=== PATIENT | female | born 1970 | race Two or more races ===

== ENCOUNTER 2020-04-17 10:34 | Emergency (ER) | payer OTHER ==
[2020-04-17 10:54] VITALS: BP 135/89; PULSE 96; TEMP 99; BMI 27.3
[2020-04-17] MEDS ORDERED: ACETAMINOPHEN 325 MG TABLET (FP) PO ONE (12:00)
[2020-04-17] MEDS ORDERED: ACETAMINOPHEN 325 MG TABLET (FP) ONE (12:06)
== END 2020-04-17 13:25 | disposition home or self-care (01) ==
LOC: JER 10:34
DX: U07.1 COVID-19 (principal)
CPT/HCPCS: 71046-TC-FY; 99284-25; C9803; U0003

== ENCOUNTER 2021-07-28 23:18 | Emergency (ER) | payer OTHER ==
[2021-07-28] MEDS ORDERED: IBUPROFEN 400 MG TABLET (FP) PO ONE (23:25)
[2021-07-28 23:29] VITALS: BP 130/93; PULSE 96; TEMP 97.9; BMI 26.6
[2021-07-28] MEDS ORDERED: IBUPROFEN 600 MG TABLET (FP) PO ONE (23:30)
== END 2021-07-29 00:13 | disposition home or self-care (01) ==
LOC: FER 23:18
DX: S90.935A Unspecified superficial injury of left lesser toe(s), initial encounter (principal); W20.8XXA Other cause of strike by thrown, projected or falling object, initial encounter
CPT/HCPCS: 73660-TC-LT-FY; 99283-25

== ENCOUNTER → 2021-08-26 | Day surgery (SDC) | payer OTHER ==
[2021-08-21 15:29] VITALS: BMI 30.6
[~2021-08-26] MED LIST: KETAMINE HCL 200 MG/20 ML VIAL ONE
== END | disposition home or self-care (01) ==
LOC: JASU-ENDO 04:42
PROVIDERS: ATTEND Internal Medicine Gastroenterology
DX: Z53.8 Procedure and treatment not carried out for other reasons (principal)

== ENCOUNTER 2021-10-21 04:27 | Day surgery (SDC) | payer OTHER ==
[2021-10-17 11:48] VITALS: BMI 29.5
[2021-10-21 12:05] VITALS: TEMP 98
[2021-10-21 12:45] VITALS: BP 104/63; PULSE 77; RESP 17
== END 2021-10-21 12:50 | disposition home or self-care (01) ==
LOC: JASU-ENDO 04:27
PROVIDERS: ATTEND Internal Medicine Gastroenterology
PROC: 0DBN8ZX Excision of Sigmoid Colon, Via Natural or Artificial Opening Endoscopic, Diagnostic (ICD-10-PCS; 2021-10-21)
PROC: 0DBF8ZX Excision of Right Large Intestine, Via Natural or Artificial Opening Endoscopic, Diagnostic (ICD-10-PCS; principal; 2021-10-21 11:00)
DX: Z12.11 Encounter for screening for malignant neoplasm of colon (principal); D12.2 Benign neoplasm of ascending colon; D12.5 Benign neoplasm of sigmoid colon; K64.8 Other hemorrhoids
CPT/HCPCS: 81025; 88305-TC

== ENCOUNTER 2021-12-18 09:14 | Emergency (ER) | payer OTHER ==
[2021-12-18 09:36] VITALS: BP 146/100; PULSE 92; RESP 16; TEMP 98.3; BMI 30.2
== END 2021-12-18 10:10 | disposition home or self-care (01) ==
LOC: FER 09:14
DX: R22.0 Localized swelling, mass and lump, head (principal)
CPT/HCPCS: 99283-25

== ENCOUNTER 2022-06-29 04:31 | Day surgery (SDC) | payer OTHER ==
[2022-06-26 08:41] VITALS: BMI 27.3
[2022-06-29 09:04] VITALS: RESP 14
[2022-06-29] MEDS ORDERED: FENTANYL CITRATE/PF 50 MCG/ML VIAL ONE (09:57)
[2022-06-29 10:24] VITALS: TEMP 97.2
[2022-06-29 10:56] VITALS: BP 125/70; PULSE 61
== END 2022-06-29 11:07 | disposition home or self-care (01) ==
LOC: JASU-ENDO 04:31
PROVIDERS: ATTEND Internal Medicine Gastroenterology
PROC: 0DB78ZX Excision of Stomach, Pylorus, Via Natural or Artificial Opening Endoscopic, Diagnostic (ICD-10-PCS; 2022-06-29)
PROC: 0DB68ZX Excision of Stomach, Via Natural or Artificial Opening Endoscopic, Diagnostic (ICD-10-PCS; principal; 2022-06-29 10:30)
DX: K29.50 Unspecified chronic gastritis without bleeding (principal)
CPT/HCPCS: 81025; 88305-TC; 88342-TC

== ENCOUNTER 2022-10-06 05:03 | Day surgery (SDC) | payer OTHER ==
[2022-09-30 11:48] VITALS: BMI 27.2
[~2022-10-06 05:03] MED LIST changes: -KETAMINE HCL 200 MG/20 ML VIAL ONE; +LIDOCAINE HCL 1% PRESERVATIVE FREE - 30ML VIAL IJ ONE
[2022-10-06] MEDS ORDERED: BUPIVACAINE HCL/PF 0.5% (5MG/ML) 10 ML VIAL ONE (07:24)
[2022-10-06] MEDS ORDERED: LIDOCAINE HCL/PF 1% SDV 5ML VIAL ONE (07:24)
[2022-10-06] MEDS ORDERED: ACETAMINOPHEN 500 MG TABLET (FP) PO PRN (08:07)
[2022-10-06] MEDS ORDERED: BUPIVACAINE HCL/PF 0.5% (5MG/ML) 10 ML VIAL IJ ONE (12:03)
[2022-10-06 13:05] VITALS: RESP 18
[2022-10-06 14:04] VITALS: BP 141/87; PULSE 71; TEMP 97.6
== END 2022-10-06 13:50 | disposition home or self-care (01) ==
LOC: JASU-SURG 05:03
PROVIDERS: ATTEND Pain Medicine Pain Medicine
PROC: 3E0T33Z Introduction of Anti-inflammatory into Peripheral Nerves and Plexi, Percutaneous Approach (ICD-10-PCS; 2022-10-06)
PROC: 3E0T3BZ Introduction of Anesthetic Agent into Peripheral Nerves and Plexi, Percutaneous Approach (ICD-10-PCS; principal; 2022-10-06 12:00)
DX: M47.812 Spondylosis without myelopathy or radiculopathy, cervical region (principal)
CPT/HCPCS: 76000-TC-FY; 81025